=== PATIENT | female | born 1945 | race Caucasian/White ===

== ENCOUNTER 2024-07-05 18:01 | Emergency (ER) | payer MEDICARE, SELFPAY ==
[2024-07-05 18:03] VITALS: BP 148/78
[2024-07-05 18:09] VITALS: BP 148/78
[2024-07-05 18:12] VITALS: BMI 53.5
[2024-07-05 18:31] LABS: % Basophils 0.3 % (0-2); % Eosinophils 0.3 % (0-6); % Immature Granulocytes 0.6 % (0-0.5); % Lymphocytes 7.7 % (20.5-51.1); % Monocytes 8.3 % (1.7-9.3); % Neutrophils 82.8 % (42.2-75.2); Absolute Immature Granulocytes 0.1 10^3/uL (0-0.05); Absolute Lymphocytes 1.1 10^3/uL (1.2-3.4); Absolute Monocytes 1.2 10^3/uL (0.1-0.6); Absolute Neutrophils 11.6 10^3/uL (1.4-6.5); Hematocrit 48.3 % (37.0-47.0); Hemoglobin 15.2 g/dL (12.0-16.0); Mean Corp Hgb Conc. 31.5 g/dL (33.0-37.0); Mean Corpuscular Hgb 28.9 pg (27.0-31.0); Mean Corpuscular Volume 91.8 fL (81.0-99.0); Mean Platelet Volume 10.9 fL (7.4-10.4); Nucleated Red Blood Cells % 0 %; Platelet Count 232 10^3/uL (130-400); Red Blood Cell Count 5.26 10^6/uL (4.20-5.40); Red Cell Dist. Width 13.7 % (11.5-14.5); White Blood Cell Count 14.1 10^3/uL (4.8-10.8)
[2024-07-05 18:56] LABS: Troponin I 0.017 ng/ml
[2024-07-05 19:00] VITALS: BP 143/69
[2024-07-05 20:00] VITALS: BP 153/54
[2024-07-05 20:22] LABS: ALT (SGPT) 15 U/L (0-35); AST (SGOT) 28 U/L (14-36); Albumin 3.9 g/dl (3.5-5.0); Alkaline Phosphatase 102 U/L (38-126); Blood Urea Nitrogen 22 mg/dl (7-17); Calcium 9.1 mg/dl (8.4-10.2); Carbon Dioxide 35 mmol/L (22-30); Chloride 98 mmol/L (98-107); Estimated Creatinine Clearance 69 ml/min; Glucose 127 mg/dl (70-99); Potassium 4.8 mmol/L (3.5-5.1); Sodium 138 mmol/L (135-145); Total Bilirubin 0.7 mg/dl (0.2-1.3); Total Protein 6.8 g/dl (6.3-8.2); eGFR > 60.00
[2024-07-05 21:02] VITALS: BP 130/77
--- NOTE | 2024-07-05 21:42 | ED.GENMED ---
History of Present Illness
General
Chief Complaint: Fall
Source: patient and family (Daughter who lives with the patient)
Time Seen by Provider: 07/05/24 18:08
History of Present Illness
History of Present Illness:
The patient is a 79-year-old female with a past medical history of CHF, COPD and morbid obesity who reports that a fuse blew in her home so she walked to her garage to check her electrical box. Patient reports that while walking into her garage,
she tripped down a step and fell forward. Patient reports she did not hit her head. She denies headache, neck pain, back pain, and any new pain since the fall. Patient reports she had a hard time getting up so laid down on the ground for several
hours until her daughter got home from work. Patient only complains of chronic bilateral knee pain. She reports she otherwise feels well. She denies recent illness.
Past History
Past History
ED Past Medical History: CHF, COPD and Hypothyroidism
ED Past Surgical History: Cholecystectomy and Gynecological (D&C)
Social History
Tobacco: Former smoker
Alcohol: None
Drug: None
Personal: Single
Living: with family (With her daughter)
Employment: Retired
Family History
Family History: Other (Noncontributory)
Review of Systems
Review of Systems
Allergies reviewed?: Yes
Other source history: family
All Other Systems: ROS reviewed and negative except as documented in HPI and ROS
Constitutional: Reports no symptoms
EENT: Reports no symptoms
Cardiac: Reports no symptoms
ABD/GI: Reports no symptoms
: Reports no symptoms
Musculoskeletal: Reports no symptoms
Skin: Reports other (Red rash under breasts and epigastric area)
Neurological: Reports no symptoms
Endocrine: Reports no symptoms
Hematologic/Lymphatic: Reports no symptoms
Psychiatric: Reports no symptoms
Phy Exam
Physical Exam
Physical Exam:
Physical Exam
General: no apparent distress, not acutely ill, smiling, conversational. Atraumatic appearing face and head. No areas of scalp contusion or tenderness
Neck: supple. Nontender C-spine
Heart: s1/s2 regular rate and rhythm, no murmur. equal radial pulses. No vertebral spine tenderness
Lungs: no acute respiratory distress. Mild rhonchi. No crackles or wheezing.
Abdomen: normal bowel sounds. not tender. no CVAT. Soft and nontender throughout. No ecchymoses on chest, abdomen or back
Neuro: alert and oriented. no focal neurological deficits. 5 out of 5 strength in all extremities. Follows all commands appropriately. Answers all questions appropriately
Skin: Extensive skin candidiasis under bilateral breasts and upper epigastric area.
Psychiatric: well kept. interactive and cooperative
Extremities: Trace edema in bilateral lower extremities. Mild skin abrasion right lateral lower leg without any signs of bleeding. Nontender pelvis and hips. Full range of movement of upper extremities without any pain
Course
Orders/Labs/Results
Orders:
Orders
07/05/24 18:23
Electrocardiogram (*1) Urgent
Reason for Study: Shortness of Breath
07/05/24 18:25
Complete Blood Count/With Diff Urgent
Troponin I Urgent
07/05/24 19:56
Comprehensive Metabolic Panel Urgent
Abnormal Lab Results
07/05/24 07/05/24
18:25 19:56
WBC 14.1 H 10^3/uL
(4.8-10.8)
Hct 48.3 H %
(37.0-47.0)
MCHC 31.5 L g/dL
(33.0-37.0)
MPV 10.9 H fL
(7.4-10.4)
Abs Immat Gran (auto) 0.1 H 10^3/uL
(0-0.05)
Absolute Neuts (auto) 11.6 H 10^3/uL
(1.4-6.5)
Absolute Lymphs (auto) 1.1 L 10^3/uL
(1.2-3.4)
Absolute Monos (auto) 1.2 H 10^3/uL
(0.1-0.6)
Immature Gran % 0.6 H %
(0-0.5)
Neutrophils % 82.8 H %
(42.2-75.2)
Lymphocytes % 7.7 L %
(20.5-51.1)
Carbon Dioxide 35 H mmol/L
(22-30)
BUN 22 H mg/dl
(7-17)
Glucose 127 H mg/dl
(70-99)
07/05/24 18:25
07/05/24 19:56
Vital Signs
Initial and Last Documented VS:
Initial Vital Signs
Temp Pulse Resp BP Pulse Ox
97.8 F 88 24 148/78 94
07/05/24 18:03 07/05/24 18:03 07/05/24 18:03 07/05/24 18:03 07/05/24 18:03
Last Documented Vital Signs
Temp Pulse Resp BP Pulse Ox
97.8 F 84 24 143/69 91
07/05/24 18:03 07/05/24 19:45 07/05/24 19:45 07/05/24 19:00 07/05/24 19:45
MDM/Problems Addressed
Differential Diagnosis Includes:
Closed head injury, acute dehydration, acute rhabdo
MDM/Problems Addressed:
Patient presents after a fall
Chronic conditions affecting care: Cardiomyopathy
Acute Exacerbation and/or Progression of Chronic Illness:
Patient is in no acute distress. There is no exacerbation clinically of COPD or CHF
Acute Exacerbation and/or Progression of Chronic Illness: Cardiomyopathy
*Pulse Oximetry
Patient hypoxic: no
*EKG
Interpreted by ED Provider?: NA
*Chief Technology Officer Interpretation
Rate: normal
Interpretation: normal
Rhythm: sinus
*Critical Care Note
Total Time (30-74mins, 75-104mins- exclusive of procedures): Not Applicable
Data Reviewed
Review of Other/Old Records Reveals: Discharge Summary (Discharge summary reviewed from hospitalist from 2019 when patient was admitted for diastolic CHF)
Source: patient and family
Patient Management
Social determinants of health affecting care: Living situation and Strong social support
Escalation/DeEscalation of care consider admission/obs:
There is no history or sign of head trauma. Patient C-spine is nontender and she denies neck pain. She is breathing comfortably without any pleuritic chest pain or back pain. There are no signs of any trauma to chest, back, head, neck or
extremities. Patient describes a slip/trip and fall. There is no history to suggest syncope. Patient feels well and would like to go home. White blood cell count may be elevated due to stress of laying on the ground for several hours. Patient
is drinking fluids without difficulty.
ED Attending Note
-
Portions of this chart may have been created with voice recognition software.� Occasional wrong word or��sound alike� substitutions may have occurred due to the inherent limitations of voice recognition software.
Discharge Plan
Departure
Patient Disposition: Home (Routine Discharge)
Date of Disposition: 07/05/24
Time of Disposition: 21:13
Patient with high blood pressure during this ER visit?: Yes
Condition: Good
Covid-19: Not Applicable
Discharge Problem:
Fall from slip, trip, or stumble, Candidiasis of skin
Instructions: Preventing falls in adults, Fungal Skin Rash ED, BLOOD PRESSURE
Prescriptions:
No Action
albuterol sulfate 1 PUFF HFA aerosol inhaler
2 puff inhalation R Q4HPRN PRN (Reason: sob/copd)
levothyroxine 112 MCG tablet
150 mcg PO DAILY
cyclobenzaprine 10 MG tablet
10 mg PO HS Qty: 0
atorvastatin 40 MG tablet
40 mg PO QPM Qty: 30 5RF
carvedilol 6.25 MG tablet
6.25 mg PO BID Qty: 60 5RF
clopidogrel 75 MG tablet
75 mg PO DAILY Qty: 30 5RF
aspirin 81 MG tablet,chewable
81 mg PO DAILY Qty: 30 5RF
lisinopril 5 MG tablet
5 mg PO DAILY Qty: 30 5RF
furosemide 20 MG tablet
20 mg PO DAILY Qty: 30 5RF
Referrals:
Juvenal Davis, DO [Family Provider] -
Activity Restrictions/Additional Instructions:
Return with any fever, severe headache or shortness of breath. Make sure to drink lots of fluids and eat a good protein meal tonight.
Apply clotrimazole 1% cream on the fungal rash under your breasts twice a day until the rash is resolved. This cream is sold [id number] at your pharmacy.
Interventions
Interventions:
*Risk Screen - Suicide Last Done: 07/05/24 18:13
*General Assessment Last Done: 07/05/24 18:13
*Neglect/Abuse Screening Last Done: 07/05/24 18:13
*ED COVID-19 Vaccine History Last Done: 07/05/24 18:13
ED-Musculoskeletal Assessment Last Done: 07/05/24 18:13
ED- Neurological Assessment Last Done: 07/05/24 18:13
ED-Skin Assessment Last Done: 07/05/24 18:13
Discharge Date and Time
Print Language: LITHUANIAN
== END 2024-07-05 22:34 | disposition home or self-care (01) ==
LOC: EMR 18:01
PROVIDERS: EMERGENCY PHYSICIAN Emergency Medicine; FAMILY PHYSICIAN Internal Medicine
DX: B37.2 Candidiasis of skin and nail (principal); M25.562 Pain in left knee; M25.561 Pain in right knee; W01.0XXA Fall on same level from slipping, tripping and stumbling without subsequent striking against object, initial encounter; R03.0 Elevated blood-pressure reading, without diagnosis of hypertension; Z87.891 Personal history of nicotine dependence; I50.9 Heart failure, unspecified; J44.9 Chronic obstructive pulmonary disease, unspecified
CPT/HCPCS: 99283; 80053; 84484; 85025